=== PATIENT | female | born 1990 | race Caucasian/White ===

== ENCOUNTER 2022-08-17 15:12 | Emergency (ER) | payer MEDICAID ==
[~2022-08-17] VITALS: Ht 165.1 cm; Wt 103.9 kg
[2022-08-17 15:32] VITALS: BP_SYST 144
--- NOTE | 2022-08-17 17:32 | NUR ---
AMBULATE TO ROOM 6. PLACED ON WHIPPED TOPPING MIXER. COMFORT MEASURES AND SUPPORTIVE CARE INITIATED. MSE BY DR. Duncan. REPORT TO PRIMARY.
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
[2022-08-17 18:18] LABS: BILIRUBIN,URINE NEGATIVE (NEGATIVE); BLOOD, URINE NEGATIVE (NEGATIVE); CLARITY/URINE CLEAR (CLEAR); COLOR,URINE YELLOW (YELLOW); GLUCOSE,URINE NEGATIVE (NEGATIVE); KETONES,URINE NEGATIVE (NEGATIVE); LEUKOCYTE ESTERASE ,URINE NEGATIVE (NEGATIVE); NITRITE, URINE NEGATIVE (NEGATIVE); PROTEIN URINE NEGATIVE (NEGATIVE); UROBILINOGEN,URINE 0.2 (0.2-1.0)
[2022-08-17 18:28] LABS: BASOPHILS # (AUTO) 0.1 K/uL (0.0-0.2); EOSINOPHILS # (AUTO) 0.2 K/uL (0.0-0.4); EOSINOPHILS % (AUTO) 1.6 % (0.0-4.0); HEMATOCRIT 37.7 % (36-48); HEMOGLOBIN 12.5 g/dL (12.0-16.0); LYMPHOCYTES # (AUTO) 2.1 K/uL (1.0-5.5); LYMPHOCYTES % (AUTO) 20.8 % (20.5-51.5); MEAN CORPUSCULAR HEMOGLOBIN 31 pg (27-31); MEAN CORPUSCULAR HGB CONC 33 % (32-36); MEAN CORPUSCULAR VOLUME 93 fL (79.0-98.0); MONOCYTES # (AUTO) 0.7 K/uL (0.0-1.0); MONOCYTES % (AUTO) 6.8 % (1.7-9.3); NEUTROPHILS # (AUTO) 7.2 K/uL (1.8-7.7); NEUTROPHILS % (AUTO) 69.8 % (40.0-70.0); PLATELET COUNT (AUTO) 247 K/uL (130-430); RED BLOOD CELL COUNT(AUTO) 4.08 MIL/uL (4.2-6.2); RED CELL DISTRIBUTION WIDTH 14.1 % (9.0-15.0); WHITE BLOOD COUNT (AUTO) 10.3 K/uL (4.8-10.8)
[2022-08-17 18:59] LABS: CALCIUM 8.8 mg/dL (8.4-11.0); CREATININE 0.61 mg/dL (0.55-1.30)
[2022-08-17 19:04] LABS: ALBUMIN 3.5 g/dL (3.4-4.8); TOTAL BILIRUBIN 0.2 mg/dL (0.0-1.0)
--- NOTE | 2022-08-17 19:15 | NUR ---
Placed in room, report given to [facility] ALL QUESTIONS ANSWERED.
[2022-08-17 19:17] LABS: PROTHROMBIN TIME 9.7 SECS (9.5-12.5)
--- NOTE | 2022-08-17 20:18 | NUR ---
PATIENT SAYS SHE WANT TO GO HOME, EDUCATION DONE ON THE RISK OF GOING HOME AGAINST MEDICAL ADVISE NOTIFIED
--- NOTE | 2022-08-17 20:18 | NUR ---
Patient left the hospital according to the RN. Patient does not wish to proceed with medical care recommended by dR. Dutton. Patient given information related to possible complications, up to and including , which could occur as a result of leaving hospital at this time. Patient verbalizes understanding of risks involved leaving against medical advice. Patient refused to sign AMA form.
[2022-08-17 20:50] VITALS: BP_SYST 134
== END 2022-08-17 20:15 | disposition home or self-care (01) ==
LOC: SED 15:12
DX: G96.00 Cerebrospinal fluid leak, unspecified (principal); R51.9 Headache, unspecified; R42 Dizziness and giddiness; R20.2 Paresthesia of skin; Z91.040 Latex allergy status; Z79.899 Other long term (current) drug therapy
CPT/HCPCS: 36415; 80053; 81003; 85025; 85610-TC; 85730-TC; 99283